=== PATIENT | male | born 1990 | race Caucasian/White ===

== ENCOUNTER 2021-06-04 13:45 | Outpatient (REF) | payer OTHER, SELFPAY ==
--- NOTE | ~2021-06-04 | XR_ITS ---
EXAMINATION: XR HAND, LEFT CLINICAL INFORMATION: Contusion COMPARISON: None TECHNIQUE: PA, lateral, and oblique views of the left hand. FINDINGS: Visualized portion of the distal radius and ulna demonstrate no fracture. Carpal rows are maintained. No carpal bone fracture. No metacarpal or phalangeal fracture. No appreciable degenerative changes of the left hand. Suspected mild soft tissue swelling along the dorsal aspect of the hand in the region of the fifth metacarpal. No radiopaque foreign body. XR/XR hand LT min 3V IMPRESSION: Soft tissue swelling of the hand. No fracture.
== END 2021-06-04 13:46 | disposition home or self-care (01) ==
LOC: HO.HMGCX 13:45
PROVIDERS: Visit Provider Internal Medicine
DX: S60.222A Contusion of left hand, initial encounter (principal)
CPT/HCPCS: 73130